=== PATIENT | male | born 1950 | race Caucasian/White ===

== ENCOUNTER → 2018-09-09 11:44 | Outpatient (CLI) | payer MEDICARE, OTHER, SELFPAY ==
[2018-09-09 11:59] LABS: Bacteria Urine None Seen
[2018-09-09 12:55] LABS: Appearance Urine UA SL CLOUDY; Bilirubin Urine UA NEGATIVE (NEGATIVE); Color Urine UA YELLOW; Glucose Urine UA NEGATIVE (Normal); Ketones Urine UA NEGATIVE (NEGATIVE); Leukocyte Esterase Urine UA NEGATIVE (NEGATIVE); Nitrite Urine UA Negative (Negative); Occult Blood Urine UA 3+ (Negative); Protein Urine UA TRACE (Negative); pH Urine UA 6.5 (4.5-8.0)
[2018-09-09 13:05] LABS: Culture Indicated Urine Cult Not Indicated; RBC Urine 30-100/HPF (0-5/HPF); Squamous Epithelial Cell Urine 1-5 /HPF; WBC Urine 1-5/HPF (0-5/HPF)
== END ==
PROVIDERS: Family Provider Internal Medicine; PCP Internal Medicine; Visit Provider Urology
DX: R35.0 Frequency of micturition (principal)
CPT/HCPCS: 81001